=== PATIENT | male | born 1945 | race Caucasian/White ===

== ENCOUNTER → 2025-01-05 16:04 | Outpatient (REF) | payer MEDICARE, OTHER, SELFPAY | LOC: CLAB 16:04 | PROVIDERS: ATTENDING PHYSICIAN Specialist | DX: N39.0 Urinary tract infection, site not specified (principal) | CPT/HCPCS: 87086; 87147 ==

== ENCOUNTER → 2025-03-01 11:11 | Outpatient (REF) | payer MEDICARE, OTHER, SELFPAY | LOC: RAD 11:11 | PROVIDERS: ATTENDING PHYSICIAN Specialist; FAMILY PHYSICIAN Family Medicine | DX: N30.20 Other chronic cystitis without hematuria (principal) | CPT/HCPCS: 74178; Q9967 ==